=== PATIENT | male | born 1995 | race American Indian/Alaskan Native ===

== ENCOUNTER 2016-10-02 05:56 | Observation (INO) | payer MEDICAID, OTHER ==
[2016-10-02 05:57] VITALS: BMI 22.5
[2016-10-02 06:29] VITALS: RESP 16; TEMP 100.3
[2016-10-02 07:12] LABS: ADD MANUAL DIFF? NO
[2016-10-02 07:17] LABS: BASO # 0.01 K/mm3 (0.0-2.0); BASO % 0.1 % (0.0-3.0); EOS # 0.1 (0.0-0.7); EOS % 0.4 % (1.5-5.0); GRAN # 9.47 (1.4-6.5); GRAN % 82.2 % (50.0-68.0); HEMATOCRIT 42.4 % (42.0-52.0); LYMPH # 1.1 (1.2-3.4); LYMPH % 9.7 % (22.0-35.0); MEAN CORPUSCULAR HEMOGLOBIN 29.5 pg (25.0-35.0); MEAN CORPUSCULAR HGB CONC 35.1 g/dl (31.0-37.0); MEAN PLATELET VOLUME 9.9 fl (7.0-11.0); MONO # 0.9 (0.1-0.6); MONO % 7.6 % (1.0-6.0); PLATELET COUNT 132 10^3/uL (120.0-450.0); RED CELL DISTRIBUTION WIDTH 13.1 % (11.5-14.5); WHITE BLOOD COUNT 11.5 10^3/ul (4.5-11.0)
[2016-10-02 07:27] LABS: ALB/GLOB RATIO 1.4 (1.1-1.8); ALKALINE PHOSPHATASE 60 U/L (38-133); ALT/SGPT 32 U/L (7-56); AST/SGOT 22 U/L (15-59); BILIRUBIN,TOTAL 0.6 mg/dL (0.2-1.3); BLOOD UREA NITROGEN 11 mg/dL (7-21); CALCIUM 9.3 mg/dL (8.4-10.5); CARBON DIOXIDE 27 mmol/L (21-33); CHLORIDE 102 mmol/L (98-107); GFR AFRICAN-AMERICAN > 60; GLUCOSE,RANDOM 95 mg/dL (70-110); LIPASE 20 U/L (23-300); MAGNESIUM 1.8 mg/dL (1.7-2.2); POTASSIUM 3.8 mmol/L (3.6-5.0); SODIUM 138 mmol/L (132-148); TOTAL PROTEIN 7.2 g/dL (5.8-8.3)
--- NOTE | 2016-10-02 07:27 | ED PDOC ---
Arrival/HPI - General Historian: Patient - History of Present Illness Time/Duration: Prior to Arrival Symptom Onset: Sudden Symptom Course: Intermittent Quality: Tightness Severity Level: 5 Context: Home <Aspen Banks - Last Filed: 10/02/16 10:18> <Vishnu Cho - Last Filed: 10/02/16 10:24> - General Chief Complaint: Abdominal Pain Time Seen by Provider: 10/02/16 06:00 - History of Present Illness Narrative History of Present Illness (Text): 10/02/16 07:26 21 yo male with no significant PMH presents with epigastric abdominal pain. The pain is described at intermittent tightness, 5/10 that does not radiate. Patient states the pain started yesterday. He denies nausea, vomiting. He denies any previous episodes. He also reports general weakness that started yesterday. This morning patient states he woke up feeling hot and cold. He denies chest pain, sob, urinary symptoms. (Aspen Banks) Past Medical History - Provider Review Nursing Documentation Reviewed: Yes - Past History Past History: No Previous - Infectious Disease Hx of Infectious Diseases: None - Tetanus Immunization Tetanus Immunization: Up to Date - Past Medical History Past Medical History: No Previous - Psychiatric Hx Depression: No Hx Emotional Abuse: No Hx Physical Abuse: No Hx Substance Use: No - Past Surgical History Past Surgical History: No Previous - Anesthesia Hx Anesthesia: No - Suicidal Assessment Feels Threatened In Home Enviroment: No <Aspen Banks - Last Filed: 10/02/16 10:18> Family/Social History - Physician Review Nursing Documentation Reviewed: Yes Family/Social History: No Known Family HX Smoking Status: Light Smoker < 10 Cigarettes Daily Hx Alcohol Use: No Hx Substance Use: No Hx Substance Use Treatment: No <Aspen Banks - Last Filed: 10/02/16 10:18> Allergies/Home Meds <Aspen Banks - Last Filed: 10/02/16 10:18> <Vishnu Cho - Last Filed: 10/02/16 10:24> Allergies/Adverse Reactions: Allergies No Known Allergies Allergy (Verified 08/30/14 16:51) Home Medications: Home Meds Medication Instructions Recorded Confirmed No Known Home Med 10/02/16 10/02/16 Review of Systems - Review of Systems Constitutional: Fatigue, Fevers Eyes: Normal ENT: Normal Respiratory: Normal. absent: SOB, Cough Cardiovascular: Normal. absent: Chest Pain, Palpitations, Syncope Gastrointestinal: Abdominal Pain, Constipation. absent: Diarrhea, Nausea, Vomiting Genitourinary Male: Normal. absent: Dysuria, Frequency, Hematuria Musculoskeletal: Normal. absent: Arthralgias, Myalgias Skin: Normal. absent: Rash, Laceration, Ulcer Neurological: Normal. absent: Headache, Dizziness Hemo/Lymphatic: Normal. absent: Easy Bleeding, Easy Bruising <Aspen Banks - Last Filed: 10/02/16 10:18> Physical Exam - Systems Exam Head: Present: Atraumatic, Normocephalic Pupils: Present: PERRL. No: Non-Reactive Extroacular Muscles: Present: EOMI Conjunctiva: Present: Normal Mouth: Present: Moist Mucous Membranes. No: Dry, Normal Tounge Nose (External): Present: Atraumatic. No: Abrasion Neck: Present: Normal Range of Motion Respiratory/Chest: Present: Clear to Auscultation, Good Air Exchange. No: Respiratory Distress, Accessory Muscle Use, Wheezes, Rales, Rhonchi, Tachypneic Cardiovascular: Present: Regular Rate and Rhythm, Normal S1, S2. No: Murmurs, Tachycardic Abdomen: Present: Tenderness (epigastric ), Normal Bowel Sounds. No: Distention , Peritoneal Signs, Guarding, McBurney's Point Tender, Rovsing's Sign Present Upper Extremity: Present: Normal Inspection, NORMAL PULSES. No: Cyanosis, Edema Lower Extremity: Present: Normal Inspection. No: Edema, CALF TENDERNESS Neurological: Present: GCS=15, CN II-XII Intact, Speech Normal Skin: Present: Warm, Dry, Normal Color. No: Rashes Psychiatric: Present: Alert, Oriented x 3 <Aspen Banks - Last Filed: 10/02/16 10:18> Medical Decision Making <Aspen Banks - Last Filed: 10/02/16 10:18> <Vishnu Cho - Last Filed: 10/02/16 10:24> ED Course and Treatment: 10/02/16 07:39 Impression: 21 yo male with no PMH presents with epigastric abdominal pain. Differential Diagnosis included but are not limited to: gastritis, appendicitis Plan: - cbc, bmp - lipase, amylase - pepcid - toradol - CT abd/pelvic with IV and PO - NPO -- Reassess and disposition Progress Notes: 10/02/16 09:22 - patient is resting comfortably, pain has improved. All labs reviewed 10/02/16 10:11 - CT abd/pel with PO and IV contrast was unremarkable. Abdomen is soft, patient is tolerating PO intake. (Aspen Banks) Patient Seen With Resident: In agreement with resident note which contains more details about the patient. Patient was seen and evaluated with resident. Came up with plan and treatment together. 21-year-old male with abdominal discomfort, low-grade fever Labs show leukocytosis. No other acute abnormalities. CT unremarkable. On reevaluation, patient reports that she feels much better and would like to be discharged home. Patient's repeat abdominal exam is soft, nontender, non distended with positive bowel sounds in all 4 quadrants and no peritoneal signs. Patient is tolerating PO without any difficulty. Pt states he understands to return to the ER right away for new or worsening symptoms or for inability to f/u with PMD or specialist as instructed. Patient states that he fully agrees with and understands discharge instructions. States that he agrees with the plan and disposition. Verbalized and repeated discharge instructions and plan. I have given the patient opportunity to ask any additional questions. (Vishnu Cho) - Lab Interpretations Lab Results: 10/02/16 06:59 10/02/16 06:59 Lab Results 10/02/16 06:59: WBC 11.5 H, RBC 5.05, Hgb 14.9, Hct 42.4, MCV 84.0, MCH 29.5, MCHC 35.1, RDW 13.1, Plt Count 132, MPV 9.9, Gran % 82.2 H, Lymph % (Auto) 9.7 L , [place] % (Auto) 7.6 H, Eos % (Auto) 0.4 L, Baso % (Auto) 0.1, Gran # 9.47 H, Lymph # 1.1 L, [place] # 0.9 H, Eos # 0.1, Baso # 0.01 10/02/16 06:59: Sodium 138, Potassium 3.8, Chloride 102, Carbon Dioxide 27, Anion Gap 13, BUN 11, Creatinine 0.8, Est GFR ( Amer) > 60, Est GFR (Non- Af Amer) > 60, Random Glucose 95, Calcium 9.3, Magnesium 1.8, Total Bilirubin 0.6, AST 22, ALT 32, Alkaline Phosphatase 60, Total Protein 7.2, Albumin 4.2, Globulin 3.0, Albumin/Globulin Ratio 1.4, Lipase 20 L - RAD Interpretation Radiology Orders: 10/02/16 07:45 ABD PELVIS PO & IV CONTRAST [CT] Stat - Medication Orders Current Medication Orders: Discontinued Medications Famotidine (Pepcid 20mg/50ml Premix) 20 mg in 50 mls @ 100 mls/hr IVPB STAT STA Stop: 10/02/16 08:16 Last Admin: 10/02/16 08:23 Dose: 100 mls/hr Iohexol (Omnipaque 240 (50 Ml)) Confirm Administered Dose 50 ml .ROUTE .STK-MED ONE Stop: 10/02/16 07:49 Iohexol (Omnipaque 350 100 Ml) Confirm Administered Dose 350 mg .ROUTE .STK-MED ONE Stop: 10/02/16 08:32 Ketorolac Tromethamine (Toradol) 15 mg IVP STAT STA Stop: 10/02/16 07:48 Last Admin: 10/02/16 08:24 Dose: 15 mg ED OBSERVATION <Aspen Banks - Last Filed: 10/02/16 10:18> Discharge: Yes Date of observation admission: 10/02/16 Time of observation admission: 06:06 <Vishnu Cho - Last Filed: 10/02/16 10:24> - Observation admission statement Patient is being placed in observation because:: abd pain (Vishnu Cho) - Goals of Observation Goals of observation are:: ct, labs, workup (Vishnu Cho) Disposition/Present on Arrival - Present on Arrival Any Indicators Present on Arrival: No History of DVT/PE: No History of Uncontrolled Diabetes: No Urinary Catheter: No History of Decub. Ulcer: No History Surgical Site Infection Following: None - Disposition Have Diagnosis and Disposition been Completed?: Yes Disposition Time: 06:06 Patient Plan: Discharge <Aspen Banks - Last Filed: 10/02/16 10:18> <Vishnu Cho - Last Filed: 10/02/16 10:24> - Disposition Diagnosis: Abdominal pain Disposition: HOME/ ROUTINE Patient Problems: Current Active Problems Problem Status Onset Abdominal pain Acute Condition: IMPROVED
[2016-10-02] MEDS ORDERED: Famotidine 20mg/50ml 20 MG/50 ML BAG IVPB STA (07:47)
[2016-10-02] MEDS ORDERED: Iohexol 240 (50 ml) ONE (07:48)
[2016-10-02] MEDS ORDERED: Iohexol 350 MG/100 ML VIAL ONE (08:31)
[2016-10-02 08:48] LABS: PH,URINE 8.5 (4.7-8.0); URINE BILIRUBIN NEGATIVE (NEGATIVE); URINE BLOOD NEGATIVE (NEGATIVE); URINE GLUCOSE (UA) NEGATIVE (NEGATIVE); URINE KETONE NEGATIVE (NEGATIVE); URINE LEUKOCYTE ESTERASE NEGATIVE Leu/uL (NEGATIVE); URINE PROTEIN NEGATIVE mg/dL (<30 mg/dL); URINE UROBILINOGEN 0.2 E.U./dL (<1 E.U./dL)
[2016-10-02 08:50] LABS: URINE APPEARANCE CLEAR (CLEAR); URINE COLOR YELLOW (YELLOW)
[2016-10-02 09:01] VITALS: BP 111/53; PULSE 70; O2SAT 100
--- NOTE | 2016-10-02 10:09 | CT ---
PROCEDURE: CT Abdomen and Pelvis with contrast HISTORY: abd pain COMPARISON: None. TECHNIQUE: Contrast dose: 100 cc of Omni 350 Radiation dose: Total exam DLP = 234 mGy-cm. This CT exam was performed using one or more of the following dose reduction techniques: Automated exposure control, adjustment of the mA and/or kV according to patient size, and/or use of iterative reconstruction technique. FINDINGS: LOWER THORAX: Unremarkable. LIVER: Unremarkable. No gross lesion or ductal dilatation. GALLBLADDER AND BILE DUCTS: Unremarkable. PANCREAS: Unremarkable. No gross lesion or ductal dilatation. SPLEEN: Unremarkable. ADRENALS: Unremarkable. No mass. KIDNEYS AND URETERS: Unremarkable. No hydronephrosis. No solid mass. VASCULATURE: Unremarkable. No aortic aneurysm. BOWEL: Unremarkable. No obstruction. No gross mural thickening. APPENDIX: No evidence of appendicitis. PERITONEUM: Unremarkable. No free fluid. No free air. LYMPH NODES: Unremarkable. No enlarged lymph nodes. BLADDER: Unremarkable. REPRODUCTIVE: Unremarkable. BONES: No acute fracture. OTHER FINDINGS: None. IMPRESSION: Unremarkable contrast enhanced CT of the abdomen and pelvis.
== END 2016-10-02 10:25 | disposition home or self-care (01) ==
LOC: ED 05:56 → EROBSV 07:57
PROVIDERS: ADMIT Emergency Medicine; ATTEND Emergency Medicine
DX: R10.13 Epigastric pain (principal); F17.210 Nicotine dependence, cigarettes, uncomplicated
CPT/HCPCS: 74177; 80053; 81003; 83690; 83735; 85025; 96365; 96375; 99284; G0378; J1885; Q9966; Q9967

== ENCOUNTER 2017-03-24 19:03 | Emergency (ER) | payer SELFPAY ==
[2017-03-24 19:04] VITALS: BMI 22.5
[2017-03-24 19:12] VITALS: BP 106/66; PULSE 72; RESP 20; TEMP 97.9; O2SAT 100
[2017-03-24] MEDS ORDERED: Oxycodone/Acetaminophen 5/325 mg Tab PO STA (19:17)
--- NOTE | 2017-03-24 19:21 | ED PDOC ---
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 Aching pain, non-radiating, aggravated by movement , no urinary or bowel incontinence or retention, no night sweat, no dizziness, no change in vision, no palpitation, no other medical or psychological complaints. (Hardeep Moulton) Past Medical History - Provider Review Nursing Documentation Reviewed: Yes - Past History Past History: No Previous - Infectious Disease Hx of Infectious Diseases: None - Tetanus Immunization Tetanus Immunization: Up to Date - Past Medical History Past Medical History: No Previous - Psychiatric Hx Depression: No Hx Emotional Abuse: No Hx Physical Abuse: No Hx Substance Use: Yes - Past Surgical History Past Surgical History: No Previous - Anesthesia Hx Anesthesia: No Hx Anesthesia Reactions: No Hx Malignant Hyperthermia: No - Suicidal Assessment Feels Threatened In Home Enviroment: No <Hardeep Moulton - Last Filed: 03/24/17 19:46> Family/Social History - Physician Review Nursing Documentation Reviewed: Yes Family/Social History: Unknown Family HX Smoking Status: Light Smoker < 10 Cigarettes Daily Hx Alcohol Use: No Hx Substance Use: Yes Substance used: marijuana Hx Substance Use Treatment: No <Hardeep Moulton - Last Filed: 03/24/17 19:46> Allergies/Home Meds <Hardeep Moulton - Last Filed: 03/24/17 19:46> <Tj Bowles - Last Filed: 03/24/17 22:26> Allergies/Adverse Reactions: Allergies No Known Allergies Allergy (Verified 03/24/17 19:12) Review of Systems - Review of Systems Constitutional: absent: Fatigue, Fevers Eyes: absent: Vision Changes ENT: absent: Hearing Changes Respiratory: absent: SOB, Cough Cardiovascular: absent: Chest Pain Gastrointestinal: absent: Abdominal Pain, Nausea, Vomiting Musculoskeletal: Back Pain, Myalgias. absent: Arthralgias, Neck Pain, Joint Swelling Skin: absent: Rash, Pruritis, Skin Lesions Neurological: absent: Headache, Dizziness <Hardeep Moulton - Last Filed: 03/24/17 19:46> Physical Exam Vital Signs Reviewed: Yes Temperature: Afebrile Blood Pressure: Normal Pulse: Regular Respiratory Rate: Normal Appearance: Positive for: Well-Appearing, Non-Toxic Pain Distress: Moderate Mental Status: Positive for: Alert and Oriented X 3 - Systems Exam Head: Present: Atraumatic, Normocephalic Pupils: Present: PERRL Extroacular Muscles: Present: EOMI Conjunctiva: Present: Normal Mouth: Present: Moist Mucous Membranes Neck: Present: Normal Range of Motion Respiratory/Chest: Present: Clear to Auscultation, Good Air Exchange. No: Respiratory Distress, Accessory Muscle Use Cardiovascular: Present: Regular Rate and Rhythm, Normal S1, S2. No: Murmurs Abdomen: Present: Normal Bowel Sounds. No: Tenderness, Distention, Peritoneal Signs Back: Present: Normal Inspection, Other (LS spine: +ttp on the lt. paraspinal muscle region with mild spasm, no midline tenderness or step off, FROM without limitation, sensation intact, motor 5/5, no saddling gait, SLR test negative. ) . No: CVA Tenderness Upper Extremity: Present: Normal Inspection. No: Cyanosis, Edema Lower Extremity: Present: Normal Inspection. No: Edema Neurological: Present: GCS=15, Speech Normal, Motor Func Grossly Intact, Gait Normal, Memory Normal Skin: Present: Warm, Dry, Normal Color. No: Rashes Psychiatric: Present: Alert, Oriented x 3, Normal Insight, Normal Concentration <Hardeep Moulton - Last Filed: 03/24/17 19:46> Vital Signs Temp Pulse Resp BP Pulse Ox 03/24/17 19:07 97.9 F 72 20 106/66 100 Medical Decision Making <Hardeep Moulton - Last Filed: 03/24/17 19:46> <Tj Bowles - Last Filed: 03/24/17 22:26> ED Course and Treatment: 03/24/17 19:20 -Pt. has no urinary symptoms, no signs of cauda equinae, no emergent indication of the radiology studies indicated at this time. -Toradol and percocet. -observe and reassess 03/24/17 19:47 -Pt. feels much better. -Discharge home with naproxen, flexeril, heat compression, lumbar belt, bed rest , follow up with your own pmd and physical therapist within 2 days, return to the ER for any new or worsening signs or symptoms. (Hardeep Moulton) - Medication Orders Current Medication Orders: Discontinued Medications Ketorolac Tromethamine (Toradol) 60 mg IM STAT STA Stop: 03/24/17 19:18 Last Admin: 03/24/17 19:28 Dose: 60 mg MAR Pain Assessment Document 03/24/17 19:28 [place] (Rec: 03/24/17 19:28 [id number]) Pain Reassessment Is this a pain reassessment? No Sleep Is patient sleeping during reassessment? No Presence of Pain Presence of Pain Yes IM Administration Charges Document 03/24/17 19:28 SC (Rec: 03/24/17 19:28 [id number]) Injection Site MAR Injection Site Left Gluteus Subhash Charges for Administration # of IM Administrations 1 Oxycodone/Acetaminophen (Percocet 5/325 Mg Tab) 1 tab PO STAT STA Stop: 03/24/17 19:18 Last Admin: 03/24/17 19:28 Dose: 1 tab MAR Pain Assessment Document 03/24/17 19:28 SC (Rec: 03/24/17 19:28 [id number]) Pain Reassessment Is this a pain reassessment? No Sleep Is patient sleeping during reassessment? No Presence of Pain Presence of Pain Yes Pain Scale Used Pain Scale Used Numeric Location Left, Right or Bilateral Left Upper or Lower Lower Pain Location Body Site Back Description Description Constant Intensity of Pain at present 8 - PA / [employer] / Resident Statement / has reviewed & agrees with the documentation as recorded. <Hardeep Moulton - Last Filed: 03/24/17 19:46> - PA / [employer]CH[employer]IC / Resident Statement / has reviewed & agrees with the documentation as recorded. <Tj Bowles - Last Filed: 03/24/17 22:26> Disposition/Present on Arrival - Present on Arrival Any Indicators Present on Arrival: No History of DVT/PE: No History of Uncontrolled Diabetes: No Urinary Catheter: No History of Decub. Ulcer: No History Surgical Site Infection Following: None - Disposition Have Diagnosis and Disposition been Completed?: Yes Disposition Time: 19:22 Patient Plan: Discharge <Hardeep Moulton - Last Filed: 03/24/17 19:46> <Tj Bowles - Last Filed: 03/24/17 22:26> - Disposition Diagnosis: Low back pain, Back muscle spasm Disposition: HOME/ ROUTINE Condition: GOOD Additional Instructions: -Discharge home with naproxen, flexeril, heat compression, lumbar belt, bed rest , follow up with your own pmd and physical therapist within 2 days, return to the ER for any new or worsening signs or symptoms. Prescriptions: Back Brace [Deluxe Back Stabilizer] 1 each MC DAILY #1 each Cyclobenzaprine [Cyclobenzaprine HCl] 10 mg PO TID PRN #21 tab PRN Reason: Other Naproxen 500 mg PO BID PRN #20 tab PRN Reason: Other Referrals: [facility] at [facility] [place] [Outside] - Follow up with primary Nithin Sevilla DO [Staff Provider] - Follow up with primary Forms: WORK NOTE
== END 2017-03-24 20:14 | disposition home or self-care (01) ==
LOC: ED 19:03
DX: M54.5 Low back pain (principal); M62.830 Muscle spasm of back
CPT/HCPCS: 96372; 99282; J1885

== ENCOUNTER 2017-03-26 18:11 | Emergency (ER) | payer OTHER ==
[2017-03-26 18:12] VITALS: BMI 22.5
[2017-03-26 18:18] VITALS: TEMP 98.1; O2SAT 99
--- NOTE | 2017-03-26 18:25 | ED PDOC ---
Arrival/HPI - General Chief Complaint: Back Pain Time Seen by Provider: 03/26/17 18:21 Historian: Patient - History of Present Illness Narrative History of Present Illness (Text): 03/26/17 18:22 21 y/o male w/o significant PMHx come in for re-evaluation of Right sided lower back pain x 3-4 days. Pt admits, does heavy lifting at work. Patient describes pain as localized over right lower back, aching pain, non-radiating, worse with movement. Otherwise, pt denies known trauma or injury, fever, chills, abd. pain, N/V, denies urinary or bowel incontinence or retention, saddle anesthesia , UTI sx, denies weakness, sensory or vascular deficits to B/L lEs. At admits, was seen here in ED yesterday, when received Rx: Flexeril, naproxen. Ambulate to Ed for evaluation, not in any apparent distress. Past Medical History - Provider Review Nursing Documentation Reviewed: Yes - Travel History Have you recently traveled outside [place] w/in the past 3 mons?: No - Past History Past History: No Previous - Infectious Disease Hx of Infectious Diseases: None - Tetanus Immunization Tetanus Immunization: Up to Date - Past Medical History Past Medical History: No Previous - Psychiatric Hx Depression: No Hx Emotional Abuse: No Hx Physical Abuse: No Hx Substance Use: Yes - Past Surgical History Past Surgical History: No Previous - Anesthesia Hx Anesthesia: No Hx Anesthesia Reactions: No Hx Malignant Hyperthermia: No - Suicidal Assessment Feels Threatened In Home Enviroment: No Family/Social History - Physician Review Nursing Documentation Reviewed: Yes Family/Social History: No Known Family HX Smoking Status: Light Smoker < 10 Cigarettes Daily Hx Alcohol Use: No Hx Substance Use: Yes Substance used: marijuana Hx Substance Use Treatment: No Allergies/Home Meds Allergies/Adverse Reactions: Allergies No Known Allergies Allergy (Verified 03/26/17 18:15) Review of Systems - Review of Systems Constitutional: Normal Eyes: Normal ENT: Normal Respiratory: Normal Cardiovascular: Normal Gastrointestinal: Normal Genitourinary Male: Normal Musculoskeletal: Back Pain Skin: Normal Neurological: Normal Endocrine: Normal Hemo/Lymphatic: Normal Psychiatric: Normal Physical Exam Vital Signs Temp Pulse Resp BP Pulse Ox 03/26/17 18:17 98.1 F 70 16 97/62 L 99 Temperature: Afebrile Blood Pressure: Normal Pulse: Regular Respiratory Rate: Normal Appearance: Positive for: Well-Appearing, Non-Toxic, Comfortable Pain Distress: Moderate Mental Status: Positive for: Alert and Oriented X 3 - Systems Exam Head: Present: Normocephalic Conjunctiva: Present: Normal Mouth: Present: Moist Mucous Membranes Neck: Present: Normal Range of Motion, Trachea Midline. No: JVD Respiratory/Chest: Present: Clear to Auscultation, Good Air Exchange. No: Respiratory Distress, Accessory Muscle Use Cardiovascular: Present: Regular Rate and Rhythm, Normal S1, S2. No: Murmurs Abdomen: Present: Normal Bowel Sounds. No: Tenderness, Distention, Peritoneal Signs, Rebound, Guarding Back: Present: Other (Left sided flank and lumbar tenderness. No edema, no skin cahnges, no midline tenderness.). No: CVA Tenderness, Midline Tenderness Upper Extremity: Present: Normal ROM. No: Deformity Lower Extremity: Present: NORMAL PULSES, Normal ROM, Neurovascularly Intact. No : Edema, CALF TENDERNESS, Swelling, Deformity Neurological: Present: GCS=15, Speech Normal, Normal Sensory Function, Norm Deep Tendon Reflexes Skin: Present: Warm, Dry, Normal Color. No: Rashes Psychiatric: Present: Alert, Oriented x 3 Medical Decision Making ED Course and Treatment: 03/26/17 On re-eval, pt is afebrile, hemodynamicaly stable. Non-toxic. Ambulatory in ED with stable gait. neck: Supple. Abd: benign, (-) guarding, (-) rebound. back: (-) CVA tenderness. neurologically intact. UA results- normal study. L-spine- no acute fx or sublux Pt has clinical findings c/w Right lower back pain r/o strain. Pt advised on course of ds. ref. to F/u with PMD, Pain Management in 2-3 days for re-eval. return to ED if any new changes. - Lab Interpretations Lab Results: Lab Results 03/26/17 18:40: Urine Color Yellow, Urine Appearance Clear, Urine pH 6.5, Ur Specific Pelzer 1.010, Urine Protein Negative, Urine Glucose (UA) Negative, Urine Ketones Negative, Urine Blood Negative, Urine Nitrate Negative, Urine Bilirubin Negative, Urine Urobilinogen 0.2, Ur Leukocyte Esterase Negative - RAD Interpretation Radiology Orders: 03/26/17 18:25 LS SPINE AP/LAT [RAD] Stat (-) ACUTE FX OR SUBLUX - Medication Orders Current Medication Orders: Gabapentin (Neurontin) 300 mg PO STAT JORDAN PRN Reason: Protocol Discontinued Medications Ibuprofen (Motrin Tab) 600 mg PO STAT STA Stop: 03/26/17 18:41 Tramadol HCl (Ultram) 50 mg PO STAT STA Stop: 03/26/17 18:41 Disposition/Present on Arrival - Present on Arrival Any Indicators Present on Arrival: No History of DVT/PE: No History of Uncontrolled Diabetes: No Urinary Catheter: No History of Decub. Ulcer: No History Surgical Site Infection Following: None - Disposition Have Diagnosis and Disposition been Completed?: Yes Diagnosis: Back pain Disposition: HOME/ ROUTINE Disposition Time: 18:57 Patient Plan: Discharge Patient Problems: Current Active Problems Problem Status Onset Back pain Acute Condition: STABLE Discharge Instructions (ExitCare): Back Pain (ED), Back Exercises (ED) Additional Instructions: LIGHT DUTY TO LOWER BACK, AVOID HEAVY LIFTING, BENDING FORWARD, ETC. TAKE PAIN MEDICATION PRESCRIBED NEED FOLLOW UP WITH PMD AND PAIN MANAGEMENT IN 2-3 DAYS FOR RE-EVALUATION. RETURN TO ED IF ANY WORSENING OR NEW CHANGES. Prescriptions: Methocarbamol [Robaxin] 500 mg PO TID #14 tab Prednisone [Deltasone] 40 mg PO DAILY #6 tablet traMADol [Ultram] 50 mg PO TID #7 tab Referrals: [facility] at [facility] [place] [Outside] - Follow up with primary [facility] [Provider Group] - Follow up with primary [facility] [Provider Group] - Follow up with primary Forms: [employer] ([place]), WORK NOTE
[2017-03-26 18:48] LABS: PH,URINE 6.5 (4.7-8.0); URINE APPEARANCE CLEAR (CLEAR); URINE BILIRUBIN NEGATIVE (NEGATIVE); URINE BLOOD NEGATIVE (NEGATIVE); URINE COLOR YELLOW (YELLOW); URINE GLUCOSE (UA) NEGATIVE (NEGATIVE); URINE KETONE NEGATIVE (NEGATIVE); URINE LEUKOCYTE ESTERASE NEGATIVE Leu/uL (NEGATIVE); URINE PROTEIN NEGATIVE mg/dL (<30 mg/dL); URINE UROBILINOGEN 0.2 E.U./dL (<1 E.U./dL)
[2017-03-26 20:17] VITALS: BP 103/68; PULSE 85; RESP 18
--- NOTE | 2017-03-27 09:58 | RAD ---
PROCEDURE: Radiographs of the Lumbar Spine. HISTORY: pain COMPARISON: No prior. FINDINGS: BONES: Normal alignment. No listhesis. No fracture. DISC SPACES: Unremarkable. OTHER FINDINGS: Extensive mottled material within the stomach. Indeterminate vague opacities projecting of the left kidney- either GI contents or renal origin. IMPRESSION: No lumbar spine intrinsic pathology. Indeterminate small opacities left upper abdominal quadrant- GI contents versus left renal calculi are considerations.
== END 2017-03-26 20:17 | disposition home or self-care (01) ==
LOC: ED 18:11
DX: M54.5 Low back pain (principal)

== ENCOUNTER 2017-07-28 21:39 | Emergency (ER) | payer SELFPAY ==
[2017-07-28 21:39] VITALS: BMI 22.5
[2017-07-28 21:56] VITALS: BP 125/77; PULSE 75; RESP 18; TEMP 97.6; O2SAT 100
--- NOTE | 2017-07-28 21:56 | ED PDOC ---
Arrival/HPI - General Time Seen by Provider: 07/28/17 21:42 Historian: Patient - History of Present Illness Narrative History of Present Illness (Text): 07/28/17 21:50 21 year old male, with no significant PMH, who presents to the emergency department complaining of lower back pain since 3 days ago. 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 He has been experiencing soreness in the lower back ever since and states it is non-radiating. Patient notes he has not taken any medication for relief. Patient denies fall, trauma, dysuria, hematuria, urinary incontinence or retention, or other complaints. Time/Duration: < week Symptom Onset: Sudden Symptom Course: Unchanged Quality: Other (soreness) Context: Work Past Medical History - Provider Review Nursing Documentation Reviewed: Yes - Past History Past History: No Previous - Infectious Disease Hx of Infectious Diseases: None - Tetanus Immunization Tetanus Immunization: Up to Date - Past Medical History Past Medical History: No Previous - Psychiatric Hx Depression: No Hx Emotional Abuse: No Hx Physical Abuse: No Hx Substance Use: Yes - Past Surgical History Past Surgical History: No Previous - Anesthesia Hx Anesthesia: No Hx Anesthesia Reactions: No Hx Malignant Hyperthermia: No - Suicidal Assessment Feels Threatened In Home Enviroment: No Family/Social History - Physician Review Nursing Documentation Reviewed: Yes Family/Social History: Unknown Family HX Smoking Status: Light Smoker < 10 Cigarettes Daily Hx Alcohol Use: No Hx Substance Use: Yes Substance used: marijuana Hx Substance Use Treatment: No Allergies/Home Meds Allergies/Adverse Reactions: Allergies No Known Allergies Allergy (Verified 07/28/17 21:53) Review of Systems - Physician Review All systems were reviewed & negative as marked: Yes - Review of Systems Constitutional: absent: Fevers Respiratory: absent: SOB Cardiovascular: absent: Chest Pain Gastrointestinal: absent: Abdominal Pain, Nausea, Vomiting Genitourinary Male: absent: Dysuria, Frequency Musculoskeletal: Back Pain (lower back pain ). absent: Arthralgias, Neck Pain, Joint Swelling, Myalgias Skin: absent: Rash, Pruritis Physical Exam Vital Signs Reviewed: Yes Vital Signs Temp Pulse Resp BP Pulse Ox 07/28/17 21:56 97.6 F 75 18 125/77 100 Temperature: Afebrile Blood Pressure: Normal Pulse: Regular Respiratory Rate: Normal Appearance: Positive for: Well-Appearing, Non-Toxic, Comfortable Pain Distress: Mild Mental Status: Positive for: Alert and Oriented X 3 - Systems Exam Head: Present: Atraumatic, Normocephalic Pupils: Present: PERRL Extroacular Muscles: Present: EOMI Conjunctiva: Present: Normal Neck: Present: Normal Range of Motion Back: Present: Normal Inspection, Paraspinal Tenderness (mild tenderness on right paraspinal near L3-L4), Other (FROM. Pain triggered by lateral movement of the lumbar spine but with no midline tendernes or step off. ). No: CVA Tenderness, Midline Tenderness, Pain with Leg Raise Upper Extremity: Present: Normal Inspection. No: Cyanosis, Edema Neurological: Present: GCS=15, Speech Normal, Motor Func Grossly Intact, Gait Normal, Memory Normal Skin: Present: Warm, Dry, Normal Color. No: Rashes Psychiatric: Present: Alert, Oriented x 3, Normal Insight, Normal Concentration Medical Decision Making ED Course and Treatment: 07/28/17 Impression: 21 year old male with mild tenderness on right paraspinal L3-L4 complaining of lower back pain since 3 days ago. 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 - Scribe Statement The provider has reviewed the documentation as recorded by the Aston [facility] Provider Scribe Attestation: All medical record entries made by the Aston were at my direction and personally dictated by me. I have reviewed the chart and agree that the record accurately reflects my personal performance of the history, physical exam, medical decision making, and the department course for this patient. I have also personally directed, reviewed, and agree with the discharge instructions and disposition. Disposition/Present on Arrival - Present on Arrival Any Indicators Present on Arrival: No History of DVT/PE: No History of Uncontrolled Diabetes: No Urinary Catheter: No History of Decub. Ulcer: No History Surgical Site Infection Following: None - Disposition Have Diagnosis and Disposition been Completed?: Yes Diagnosis: Low back pain Disposition: HOME/ ROUTINE Disposition Time: 22:02 Patient Plan: Discharge Condition: GOOD Prescriptions: Cyclobenzaprine [Cyclobenzaprine HCl] 10 mg PO TID PRN #21 tab PRN Reason: Other Naproxen 500 mg PO BID PRN #20 tablet PRN Reason: Other Referrals: [facility] [place] - Follow up with primary Forms: WORK NOTE
== END 2017-07-28 22:24 | disposition home or self-care (01) ==
LOC: ED 21:39
DX: M54.5 Low back pain (principal)

== ENCOUNTER 2017-10-06 20:15 | Emergency (ER) | payer SELFPAY ==
[2017-10-06 20:15] VITALS: BMI 22.5
[2017-10-06] MEDS ORDERED: Oxycodone/Acetaminophen 5/325 mg Tab PO STA (20:37)
--- NOTE | 2017-10-06 20:46 | ED PDOC ---
Arrival/HPI - General Chief Complaint: Back Pain Time Seen by Provider: 10/06/17 20:36 Historian: Patient - History of Present Illness Narrative History of Present Illness (Text): 22 year old male w/ pmxh of [facility] visits for similar complaints LS xray (-)/ ct a/p (-) in the past year presents complaining of lower back pain , somewhat more prominent in the right lower back , reproducible with bending and truncal rotation, denying any saddle anesthesia/sphincter deficits, difficulty w/ heel/ toe walking nor any falls nor marked traumatic mechanism, although he endorses during heavy lifting at his job at the [employer]. 10/06/17 20:40 Time/Duration: Other Symptom Onset: Gradual Symptom Course: Worsening Quality: Aching Past Medical History - Provider Review Nursing Documentation Reviewed: Yes - Past History Past History: No Previous - Infectious Disease Hx of Infectious Diseases: None - Tetanus Immunization Tetanus Immunization: Up to Date - Past Medical History Past Medical History: No Previous - Cardiac Hx Cardiac Disorders: No - Pulmonary Hx Respiratory Disorders: No - Integumentary Hx Dermatological Disorder: No - Psychiatric Hx Depression: No Hx Emotional Abuse: No Hx Physical Abuse: No Hx Substance Use: Yes - Past Surgical History Past Surgical History: No Previous - Anesthesia Hx Anesthesia: No Hx Anesthesia Reactions: No Hx Malignant Hyperthermia: No - Suicidal Assessment Feels Threatened In Home Enviroment: No Family/Social History - Physician Review Nursing Documentation Reviewed: Yes Family/Social History: No Known Family HX Smoking Status: Light Smoker < 10 Cigarettes Daily Hx Alcohol Use: No Hx Substance Use: Yes Substance used: marijuana Hx Substance Use Treatment: No Allergies/Home Meds Allergies/Adverse Reactions: Allergies No Known Allergies Allergy (Verified 07/28/17 21:53) Review of Systems - Physician Review All systems were reviewed & negative as marked: Yes - Review of Systems Constitutional: Normal Eyes: Normal ENT: Normal Respiratory: Normal Cardiovascular: Normal Gastrointestinal: Normal Genitourinary Male: Normal Musculoskeletal: Back Pain Skin: Normal Neurological: Normal Endocrine: Normal Hemo/Lymphatic: Normal Psychiatric: Normal Physical Exam Vital Signs Reviewed: Yes Vital Signs Temp Pulse Resp BP Pulse Ox 10/06/17 21:15 97.9 F 60 18 113/60 98 10/06/17 20:23 98 F 79 18 114/68 99 Temperature: Afebrile Blood Pressure: Normal Pulse: Regular Respiratory Rate: Normal Appearance: Positive for: Well-Appearing, Non-Toxic, Comfortable Pain Distress: None Mental Status: Positive for: Alert and Oriented X 3 - Systems Exam Head: Present: Atraumatic, Normocephalic Pupils: Present: PERRL Extroacular Muscles: Present: EOMI Conjunctiva: Present: Normal Mouth: Present: Moist Mucous Membranes Neck: Present: Normal Range of Motion Respiratory/Chest: Present: Clear to Auscultation, Good Air Exchange. No: Respiratory Distress, Accessory Muscle Use Cardiovascular: Present: Regular Rate and Rhythm, Normal S1, S2. No: Murmurs Abdomen: No: Tenderness, Distention, Peritoneal Signs Back: Present: Other (b/l slr (-) , + b/l paralumbar ttp . r>l , no midspinal ttp ) Upper Extremity: Present: Normal Inspection. No: Cyanosis, Edema Lower Extremity: Present: Normal Inspection. No: Edema Neurological: Present: GCS=15, CN II-XII Intact, Speech Normal Skin: Present: Warm, Dry, Normal Color. No: Rashes Psychiatric: Present: Alert, Oriented x 3, Normal Insight, Normal Concentration Medical Decision Making ED Course and Treatment: 22 year old male p/w musculoskeletal lumbago -trial of analgesics -Counseled on heavy lifting serial neurological exams discharge home on similar rx. . 10/06/17 20:47 10/06/17 21:36 serial neurological exams corroborative of the earlier noted. - Medication Orders Current Medication Orders: Discontinued Medications Cyclobenzaprine HCl (Flexeril) 10 mg PO STAT STA Stop: 10/06/17 20:37 Last Admin: 10/06/17 20:49 Dose: 10 mg Ketorolac Tromethamine (Toradol) 60 mg IM STAT STA Stop: 10/06/17 20:37 Last Admin: 10/06/17 20:48 Dose: 60 mg MAR Pain Assessment Document 10/06/17 20:48 LA (Rec: 10/06/17 20:49 LA [id number]) Pain Reassessment Is this a pain reassessment? No Sleep Is patient sleeping during reassessment? No Presence of Pain Presence of Pain Yes Pain Scale Used Pain Scale Used Numeric Location Left, Right or Bilateral Bilateral Upper or Lower Lower Pain Location Body Site Back Description Intensity of Pain at present 6 Pain Behavior Guarding IM Administration Charges Document 10/06/17 20:48 LA (Rec: 10/06/17 20:49 LA [id number]) Injection Site MAR Injection Site Right Gluteus Subhash Charges for Administration # of IM Administrations 1 Oxycodone/Acetaminophen (Percocet 5/325 Mg Tab) 1 tab PO STAT STA Stop: 10/06/17 20:38 Last Admin: 10/06/17 20:48 Dose: 1 tab MAR Pain Assessment Document 10/06/17 20:48 LA (Rec: 10/06/17 20:48 LA [id number]) Pain Reassessment Is this a pain reassessment? No Sleep Is patient sleeping during reassessment? No Presence of Pain Presence of Pain Yes Pain Scale Used Pain Scale Used Numeric Location Left, Right or Bilateral Bilateral Upper or Lower Lower Pain Location Body Site Back Description Intensity of Pain at present 6 Disposition/Present on Arrival - Present on Arrival Any Indicators Present on Arrival: No History of DVT/PE: No History of Uncontrolled Diabetes: No Urinary Catheter: No History of Decub. Ulcer: No History Surgical Site Infection Following: None - Disposition Have Diagnosis and Disposition been Completed?: Yes Diagnosis: Lumbago Disposition: HOME/ ROUTINE Disposition Time: 21:37 Patient Plan: Discharge Condition: IMPROVED Discharge Instructions (ExitCare): Low Back Pain in Adults Print Language: ITALIAN Additional Instructions: Buy a wide, fat weightlifting leather belt to support your back . Lift by bending your knees not by bending from the back which will also avoid throwing your back muscles into spasm. . Take the pain meds and muscle relaxants as needed, but with food. 25-35 minutes after taking the medicine , place a hot moist towel compress to facilitate muscle relaxation, and then with deep tiisuue massage the pain will be relieved. Prescriptions: Cyclobenzaprine [Cyclobenzaprine HCl] 10 mg PO Q8 PRN #20 tab PRN Reason: Pain, Moderate (4-7) Ibuprofen [Motrin] 600 mg PO Q6 PRN #40 tab PRN Reason: Pain, Moderate (4-7) Referrals: [facility] at [facility] [place] - Follow up with primary Forms: [employer] (Hungarian), WORK NOTE
[2017-10-06 21:16] VITALS: TEMP 97.9
[2017-10-06 21:56] VITALS: BP 117/66; PULSE 65; RESP 19; O2SAT 100
== END 2017-10-06 21:50 | disposition home or self-care (01) ==
LOC: ED 20:15
DX: M54.5 Low back pain (principal)
CPT/HCPCS: 96372; 99283; J1885

== ENCOUNTER 2017-10-27 19:27 | Emergency (ER) | payer SELFPAY ==
[2017-10-27 19:28] VITALS: BMI 22.5
[2017-10-27] MEDS ORDERED: Oxycodone/Acetaminophen 5/325 mg Tab PO STA (20:14)
[2017-10-27 20:19] VITALS: TEMP 98.6
--- NOTE | 2017-10-27 20:20 | ED PDOC ---
Arrival/HPI - General Chief Complaint: Dental Pain Time Seen by Provider: 10/27/17 20:14 Historian: Patient - History of Present Illness Narrative History of Present Illness (Text): 10/27/17 20:16 22 y/o male, no significant pmh, nkda, c/o lt. lower dental pain x 1 month. Pt. stated that he has left lower dental caries, been having pain, no chin or facial swelling, no difficulty swallowing, no rash, no night sweat, no change in vision, no other medical or psychological complaints. Past Medical History - Provider Review Nursing Documentation Reviewed: Yes - Past History Past History: No Previous - Infectious Disease Hx of Infectious Diseases: None - Tetanus Immunization Tetanus Immunization: Up to Date - Past Medical History Past Medical History: No Previous - Cardiac Hx Cardiac Disorders: No - Pulmonary Hx Respiratory Disorders: No - Integumentary Hx Dermatological Disorder: No - Psychiatric Hx Depression: No Hx Emotional Abuse: No Hx Physical Abuse: No Hx Substance Use: Yes - Past Surgical History Past Surgical History: No Previous - Anesthesia Hx Anesthesia: No Hx Anesthesia Reactions: No Hx Malignant Hyperthermia: No - Suicidal Assessment Feels Threatened In Home Enviroment: No Family/Social History - Physician Review Nursing Documentation Reviewed: Yes Family/Social History: Unknown Family HX Smoking Status: Light Smoker < 10 Cigarettes Daily Hx Alcohol Use: No Hx Substance Use: Yes Substance used: marijuana Hx Substance Use Treatment: No Allergies/Home Meds Allergies/Adverse Reactions: Allergies No Known Allergies Allergy (Verified 10/27/17 20:03) Review of Systems - Review of Systems Constitutional: absent: Fatigue, Fevers Eyes: absent: Vision Changes ENT: Other (+dental pain). absent: Hearing Changes Respiratory: absent: SOB, Cough Cardiovascular: absent: Chest Pain Gastrointestinal: absent: Abdominal Pain, Nausea, Vomiting Skin: absent: Rash, Pruritis Neurological: absent: Headache, Dizziness Psychiatric: absent: Anxiety, Depression, Suicidal Ideation Physical Exam Vital Signs Reviewed: Yes Vital Signs Temp Pulse Resp BP Pulse Ox 10/27/17 19:59 98.6 F 82 19 99/76 L 98 Temperature: Afebrile Blood Pressure: Normal Pulse: Regular Respiratory Rate: Normal Appearance: Positive for: Well-Appearing, Non-Toxic, Comfortable Pain Distress: Moderate Mental Status: Positive for: Alert and Oriented X 3 - Systems Exam Head: Present: Atraumatic, Normocephalic Pupils: Present: PERRL Extroacular Muscles: Present: EOMI Conjunctiva: Present: Normal Mouth: Present: Moist Mucous Membranes, Other (Lt. lower cracked and dental caries noted with no gingivitis or gingival abscess, no facial or chin swelling. ) Nose (External): Present: Atraumatic. No: Abrasion, Contusion, Laceration Nose (Internal): Present: Normal Inspection, No Active Bleeding. No: Rhinorrhea Neck: Present: Normal Range of Motion Respiratory/Chest: Present: Clear to Auscultation, Good Air Exchange. No: Respiratory Distress, Accessory Muscle Use Cardiovascular: Present: Regular Rate and Rhythm, Normal S1, S2. No: Murmurs Abdomen: No: Tenderness, Distention, Peritoneal Signs Back: Present: Normal Inspection Upper Extremity: Present: Normal Inspection. No: Cyanosis, Edema Lower Extremity: Present: Normal Inspection. No: Edema Neurological: Present: GCS=15, CN II-XII Intact, Speech Normal, Motor Func Grossly Intact, Gait Normal, Memory Normal Skin: Present: Warm, Dry, Normal Color. No: Rashes Psychiatric: Present: Alert, Oriented x 3, Normal Insight, Normal Concentration Medical Decision Making ED Course and Treatment: 10/27/17 20:18 -motrin/percocet/amoxicillin -Discharge home with amoxicillin, motrin, soft food diet, follow up with your own pmd and dentist within2 days, return to the ER for any new or worsening signs or symptoms. - Medication Orders Current Medication Orders: Amoxicillin (Amoxil 500 Mg Cap) 500 mg PO STAT STA PRN Reason: Protocol Stop: 10/27/17 20:15 Ibuprofen (Motrin Tab) 600 mg PO STAT STA Stop: 10/27/17 20:15 Oxycodone/Acetaminophen (Percocet 5/325 Mg Tab) 1 tab PO STAT STA Stop: 10/27/17 20:15 - PA / BAFFLE MOUNTER / Resident Statement MD/DO has reviewed & agrees with the documentation as recorded. Disposition/Present on Arrival - Present on Arrival Any Indicators Present on Arrival: No History of DVT/PE: No History of Uncontrolled Diabetes: No Urinary Catheter: No History of Decub. Ulcer: No History Surgical Site Infection Following: None - Disposition Have Diagnosis and Disposition been Completed?: Yes Diagnosis: Dental caries, Pain due to dental caries Disposition: HOME/ ROUTINE Disposition Time: 20:19 Patient Plan: Discharge Condition: GOOD Additional Instructions: -Discharge home with amoxicillin, motrin, soft food diet, follow up with your own pmd and dentist within2 days, return to the ER for any new or worsening signs or symptoms. Prescriptions: Amoxicillin 500 mg PO BID #20 tab Ibuprofen [Motrin Tab] 600 mg PO QID PRN #30 tab PRN Reason: Other Referrals: [facility] at [facility] [place] [Outside] - Follow up with primary Forms: WORK NOTE
[2017-10-27 20:37] VITALS: BP 101/82; PULSE 80; RESP 18; O2SAT 100
== END 2017-10-27 20:37 | disposition home or self-care (01) ==
LOC: ED 19:27
DX: K02.9 Dental caries, unspecified (principal); F17.210 Nicotine dependence, cigarettes, uncomplicated

== ENCOUNTER 2017-11-04 15:57 | Emergency (ER) | payer OTHER ==
[2017-11-04 15:57] VITALS: BMI 22.5
[2017-11-04 16:40] VITALS: RESP 18; O2SAT 100
[2017-11-04] MEDS ORDERED: Naproxen 550 mg Tab PO STA (16:40)
--- NOTE | 2017-11-04 16:40 | ED PDOC ---
Arrival/HPI - General Chief Complaint: Dental Pain Time Seen by Provider: 11/04/17 16:33 Historian: Patient - History of Present Illness Narrative History of Present Illness (Text): 11/04/17 16:40 This 22 yo male presents to this ED c/o right lower toothache x 2 days. Patient stated he was in this ED last week, but pain medication is not helping. Patient denies fever, facial swelling, sore throat, dysphagia, dizziness, sob , cp, abdominal pain, or abnormal gait. Patient noted she was seen by his dentist last week, and he has an appointment to see his doctor next week. Time/Duration: Other (see hpi) Quality: Aching Context: Home Past Medical History - Provider Review Nursing Documentation Reviewed: Yes - Past History Past History: No Previous - Infectious Disease Hx of Infectious Diseases: None - Tetanus Immunization Tetanus Immunization: Up to Date - Past Medical History Past Medical History: No Previous - Cardiac Hx Cardiac Disorders: No - Pulmonary Hx Respiratory Disorders: No - Integumentary Hx Dermatological Disorder: No - Psychiatric Hx Depression: No Hx Emotional Abuse: No Hx Physical Abuse: No Hx Substance Use: Yes - Past Surgical History Past Surgical History: No Previous - Anesthesia Hx Anesthesia: No Hx Anesthesia Reactions: No Hx Malignant Hyperthermia: No - Suicidal Assessment Feels Threatened In Home Enviroment: No Family/Social History - Physician Review Nursing Documentation Reviewed: Yes Family/Social History: Other (noncontributory) Smoking Status: Light Smoker < 10 Cigarettes Daily Hx Alcohol Use: No Hx Substance Use: Yes Substance used: marijuana Hx Substance Use Treatment: No Allergies/Home Meds Allergies/Adverse Reactions: Allergies No Known Allergies Allergy (Verified 10/27/17 20:03) Review of Systems - Review of Systems Constitutional: Normal. absent: Fatigue, Weight Change, Fevers Eyes: Normal ENT: Other (dental pain) Respiratory: Normal Cardiovascular: Normal Gastrointestinal: Normal Genitourinary Male: Normal Musculoskeletal: Normal Skin: Normal Neurological: Normal Endocrine: Normal Hemo/Lymphatic: Normal Psychiatric: Normal Physical Exam Vital Signs Temp Pulse Resp BP Pulse Ox 11/04/17 16:17 99.1 F 67 18 95/66 L 100 Temperature: Afebrile Blood Pressure: Normal Pulse: Regular Respiratory Rate: Normal Appearance: Positive for: Well-Appearing, Non-Toxic, Comfortable Pain Distress: None Mental Status: Positive for: Alert and Oriented X 3 - Systems Exam Head: Present: Atraumatic, Normocephalic Pupils: Present: PERRL Extroacular Muscles: Present: EOMI Conjunctiva: Present: Normal Mouth: Present: Moist Mucous Membranes, Normal Lips, Normal Tounge. No: Drooling, Trismus, Normal Teeth ((+) multiple caries visualized. no gum swelling or facial swelling. no dental abscess) Pharnyx: Present: Normal. No: ERYTHEMA, EXUDATE, TONSILS ENLARGED Neck: Present: Normal Range of Motion. No: Meningeal Signs Back: Present: Normal Inspection. No: CVA Tenderness Upper Extremity: Present: Normal Inspection, Normal ROM. No: Cyanosis, Edema Lower Extremity: Present: Normal Inspection, Normal ROM. No: Edema Neurological: Present: GCS=15, CN II-XII Intact, Speech Normal, Motor Func Grossly Intact, Normal Sensory Function, Normal Cerebellar Funct, Gait Normal, Memory Normal Skin: Present: Warm, Dry, Normal Color. No: Rashes Psychiatric: Present: Alert, Oriented x 3, Normal Insight, Normal Concentration Medical Decision Making ED Course and Treatment: 11/04/17 16:47 Re-evaluation. Patient feels better. Discussed results and plan with patient who expresses understanding. All questions answered and there is agreement with the plan to discharge home with instructions. Patient stable for discharge. Return if symptoms persist or worsen. Re-evaluation Time: 16:46 Reassessment Condition: Re-examined, Improved Disposition/Present on Arrival - Present on Arrival Any Indicators Present on Arrival: No History of DVT/PE: No History of Uncontrolled Diabetes: No Urinary Catheter: No History of Decub. Ulcer: No History Surgical Site Infection Following: None - Disposition Have Diagnosis and Disposition been Completed?: Yes Diagnosis: Pain due to dental caries Disposition: HOME/ ROUTINE Disposition Time: 16:47 Patient Plan: Discharge Patient Problems: Current Active Problems Problem Status Onset Pain due to dental caries Acute Condition: IMPROVED Discharge Instructions (ExitCare): Tooth Decay, Adult (DC) Additional Instructions: Call private dentist for follow up visit in 1-2 days. Take medication as instructed. Return to emergency if symptoms worsen. Stop taking Amoxicillin, and Motrin . And start new medication Prescriptions: Chlorhexidine 0.12% [Peridex] 15 ml PO BID #1 bottle Clindamycin [Cleocin] 300 mg PO TID #21 cap Naproxen 500 mg PO BID PRN #14 tab PRN Reason: Pain, Severe (8-10) Referrals: FAMILY PROVIDER,NO [Primary Care Provider] - Follow up with primary Bailee Soria MD [Staff Provider] - Follow up with primary [facility] [Outside] - Follow up with primary Forms: [employer] (Nigerian)
[2017-11-04 17:34] VITALS: BP 103/60; PULSE 65; TEMP 99
== END 2017-11-04 17:20 | disposition home or self-care (01) ==
LOC: ED 15:57
DX: K02.9 Dental caries, unspecified (principal)

== ENCOUNTER 2018-03-03 13:44 | Emergency (ER) | payer BC ==
[2018-03-03 13:55] VITALS: BP 137/73; PULSE 91; RESP 18; O2SAT 100; BMI 21.6
--- NOTE | 2018-03-03 14:44 | ED PDOC ---
Arrival/HPI - General Chief Complaint: Back Pain Time Seen by Provider: 03/03/18 13:45 Historian: Patient - History of Present Illness Narrative History of Present Illness (Text): 03/03/18 14:12 22 year old male, with no significant past medical history, presents to the Emergency department complaining of right lower back discomfort since last night. Patient informs localized discomfort to right lower back, unchanged since onset. Patient denies any recent trauma or injury to the site but reports heavy lifting at work. Patient states exacerbation of symptoms with movement but denies any pain while at rest. Patient denies any other associated somatic complaints. Patient denies any fevers, chills, headache, dizziness, chest pain, shortness of breath, dyspnea on exertion, cough, abdominal pain, nausea, vomiting, diarrhea, neck pain, bladder or bowel incontinence, numbness to extremities, testicular pain, or any other complaints. Patient denies taking any pain medication for the presented symptoms. Time/Duration: Other (last night) Symptom Onset: Gradual Symptom Course: Unchanged Quality: Tightness Severity Level: 5 (only with movement) Past Medical History - Provider Review Nursing Documentation Reviewed: Yes - Travel History Have you recently traveled outside [place] w/in the past 3 mons?: No - Past History Past History: No Previous - Infectious Disease Hx of Infectious Diseases: None - Tetanus Immunization Tetanus Immunization: Up to Date - Past Medical History Past Medical History: No Previous - Cardiac Hx Cardiac Disorders: No - Pulmonary Hx Respiratory Disorders: No - Integumentary Hx Dermatological Disorder: No - Psychiatric Hx Depression: No Hx Emotional Abuse: No Hx Physical Abuse: No Hx Substance Use: Yes - Past Surgical History Past Surgical History: No Previous - Anesthesia Hx Anesthesia: No Hx Anesthesia Reactions: No Hx Malignant Hyperthermia: No - Suicidal Assessment Feels Threatened In Home Enviroment: No Family/Social History - Physician Review Nursing Documentation Reviewed: Yes Family/Social History: Unknown Family HX Smoking Status: Light Smoker < 10 Cigarettes Daily Hx Alcohol Use: Yes Frequency of alcohol use: Socially Hx Substance Use: Yes Substance used: marijuana Hx Substance Use Treatment: No Allergies/Home Meds Allergies/Adverse Reactions: Allergies No Known Allergies Allergy (Verified 10/27/17 20:03) Review of Systems - Review of Systems Constitutional: absent: Fatigue, Fevers Respiratory: absent: SOB, Cough Cardiovascular: absent: Chest Pain, Palpitations Gastrointestinal: absent: Abdominal Pain, Nausea, Vomiting Genitourinary Male: absent: Dysuria, Frequency, Hematuria Musculoskeletal: Back Pain. absent: Arthralgias, Neck Pain Skin: absent: Rash, Pruritis Neurological: absent: Dizziness Psychiatric: absent: Anxiety, Depression Physical Exam Vital Signs Reviewed: Yes Vital Signs Temp Pulse Resp BP Pulse Ox 03/03/18 13:50 98.3 F 91 H 18 137/73 100 Temperature: Afebrile Blood Pressure: Normal Pulse: Regular Respiratory Rate: Normal Appearance: Positive for: Well-Appearing, Non-Toxic, Comfortable Pain Distress: None Mental Status: Positive for: Alert and Oriented X 3 - Systems Exam Head: Present: Atraumatic Mouth: Present: Moist Mucous Membranes Neck: Present: Normal Range of Motion Respiratory/Chest: Present: Clear to Auscultation, Good Air Exchange. No: Respiratory Distress, Accessory Muscle Use Cardiovascular: Present: Regular Rate and Rhythm, Normal S1, S2. No: Murmurs Abdomen: No: Tenderness, Distention, Peritoneal Signs, Rebound, Guarding Back: Present: Normal Inspection, Paraspinal Tenderness (+ right low lumbar paraspinal tenderness). No: Midline Tenderness Upper Extremity: Present: Normal Inspection, Normal ROM Lower Extremity: Present: Normal Inspection, Normal ROM Neurological: Present: GCS=15, Speech Normal Skin: Present: Warm, Dry, Normal Color. No: Rashes Psychiatric: Present: Alert, Oriented x 3 Medical Decision Making ED Course and Treatment: 03/03/18 14:56 Patient nontoxic well-appearing in no distress with stable vital signs. pt with right low back pain since last night. pain only with movement. Toradol, Flexeril Patient reassessment: Feeling better with medications ambulating with a steady gait. Muscle strength 5 out of 5 bilaterally. I advised to followup with the orthopedist within the next 2 days. Return if symptoms worsen persist or new symptoms develop Patient verbalizes understanding of discharge instructions and need for immediate followup. all aspects of this case were discussed the attending of record. Impression: Back pain Motrin every 6 hours as needed for pain Flexeril one tablet every 8 hours as needed for muscle spasms: May cause drowsiness Followup with the orthopedist within the next 2 days Followup with primary care physician within the next 2 days Return if symptoms worsen persist or if new symptoms develop - Medication Orders Current Medication Orders: Discontinued Medications Cyclobenzaprine HCl (Flexeril) 10 mg PO STAT STA Stop: 03/03/18 14:13 Last Admin: 03/03/18 14:26 Dose: 10 mg Ketorolac Tromethamine (Toradol) 60 mg IM STAT STA Stop: 03/03/18 14:13 Last Admin: 03/03/18 14:26 Dose: 60 mg MAR Pain Assessment Document 03/03/18 14:26 EB (Rec[facility]03[facility]18 14:26 [facility] Pain Reassessment Is this a pain reassessment? No Sleep Is patient sleeping during reassessment? No Presence of Pain Presence of Pain Yes Pain Scale Used Protocol: PSCALES Pain Scale Used Numeric Description Intensity of Pain at present 6 IM Administration Charges Document 03/03/18 14:26 (Rec: 03/03/18 14:26 [facility] Injection Site MAR Injection Site Right Deltoid Charges for Administration # of IM Administrations 1 Disposition/Present on Arrival - Present on Arrival Any Indicators Present on Arrival: No History of DVT/PE: No History of Uncontrolled Diabetes: No Urinary Catheter: No History of Decub. Ulcer: No History Surgical Site Infection Following: None - Disposition Have Diagnosis and Disposition been Completed?: Yes Diagnosis: Back pain Disposition: HOME/ ROUTINE Disposition Time: 14:44 Patient Plan: Discharge Condition: GOOD Discharge Instructions (ExitCare): Low Back Pain (DC) Additional Instructions: Motrin every 6 hours as needed for pain Flexeril one tablet every 8 hours as needed for muscle spasms: May cause drowsiness Followup with the orthopedist within the next 2 days Followup with primary care physician within the next 2 days Return if symptoms worsen persist or if new symptoms develop Prescriptions: Cyclobenzaprine [Cyclobenzaprine HCl] 10 mg PO Q8 #10 tab Ibuprofen [Motrin] 600 mg PO Q6H PRN #20 tab PRN Reason: pain/fever reduction Referrals: Kayode Colorado MD [Staff Provider] - Follow up with primary Bailee Soria MD [Medical Doctor] - Follow up with primary [employer] [Outside] - Follow up with primary Forms: [employer] (Scottish), WORK NOTE
[2018-03-03 15:28] VITALS: TEMP 97.9
== END 2018-03-03 15:15 | disposition home or self-care (01) ==
LOC: ED 13:44
DX: M54.5 Low back pain (principal)
CPT/HCPCS: 96372; 99283; J1885

== ENCOUNTER 2018-03-12 11:30 | Emergency (ER) | payer BC ==
[2018-03-12 11:31] VITALS: BMI 22.5
[2018-03-12 11:44] VITALS: RESP 18; TEMP 98.8
[2018-03-12] MEDS ORDERED: cefTRIAXone (Rocephin) 250 mg Inj IM STA (11:57)
[2018-03-12 12:05] VITALS: O2SAT 98
[2018-03-12 12:17] LABS: PH,URINE 8.5 (4.7-8.0); URINE BILIRUBIN NEGATIVE (NEGATIVE); URINE BLOOD NEGATIVE (NEGATIVE); URINE GLUCOSE (UA) NEGATIVE (NEGATIVE); URINE LEUKOCYTE ESTERASE SMALL Leu/uL (NEGATIVE); URINE PROTEIN TRACE mg/dL (<30 mg/dL); URINE UROBILINOGEN 0.2 E.U./dL (<1 E.U./dL)
[2018-03-12 12:19] LABS: URINE APPEARANCE CLEAR (CLEAR); URINE COLOR YELLOW (YELLOW)
[2018-03-12 12:32] LABS: URINE BACTERIA MOD (NEG); URINE EPITHELIAL CELLS 0 - 2 /hpf (0-5); URINE RBC 0 - 2 /hpf (0-2)
[2018-03-12 12:37] VITALS: BP 118/69; PULSE 86
--- NOTE | 2018-03-12 12:52 | ED PDOC ---
Arrival/HPI - General Chief Complaint: Male Genitourinary Time Seen by Provider: 03/12/18 11:55 - History of Present Illness Narrative History of Present Illness (Text): 22 y/o male presents to the ED for STI testing and treatment. Patient states his partner tested positive a few days ago and he is here to receive his treatment. Pt has noticed a small amount of white penile discharge associated with mild dysuria over the last few days. Denies fever, chills, abdominal pain, testicular pain or swelling, penile lesions, or any other associated symptoms. Past Medical History - Provider Review Nursing Documentation Reviewed: Yes - Past History Past History: No Previous - Infectious Disease Hx of Infectious Diseases: None - Tetanus Immunization Tetanus Immunization: Up to Date - Past Medical History Past Medical History: No Previous - Cardiac Hx Cardiac Disorders: No - Pulmonary Hx Respiratory Disorders: No - Integumentary Hx Dermatological Disorder: No - Psychiatric Hx Depression: No Hx Emotional Abuse: No Hx Physical Abuse: No Hx Substance Use: Yes - Past Surgical History Past Surgical History: No Previous - Anesthesia Hx Anesthesia: No Hx Anesthesia Reactions: No Hx Malignant Hyperthermia: No - Suicidal Assessment Feels Threatened In Home Enviroment: No Family/Social History - Physician Review Nursing Documentation Reviewed: Yes Family/Social History: No Known Family HX Smoking Status: Light Smoker < 10 Cigarettes Daily Hx Alcohol Use: No Hx Substance Use: Yes Substance used: marijuana Hx Substance Use Treatment: No Allergies/Home Meds Allergies/Adverse Reactions: Allergies No Known Allergies Allergy (Verified 10/27/17 20:03) Home Medications: Home Meds Medication Instructions Recorded Confirmed No Known Home Med 03/12/18 03/12/18 Review of Systems - Review of Systems Constitutional: Normal. absent: Fevers Eyes: Normal. absent: Vision Changes ENT: Normal. absent: Sinus Congestion Respiratory: Normal. absent: SOB, Cough Cardiovascular: Normal. absent: Chest Pain, Palpitations Gastrointestinal: Normal. absent: Abdominal Pain, Nausea, Vomiting Genitourinary Male: Dysuria. absent: Hematuria, Urinary Output Changes, Other (testicular swelling or pain) Musculoskeletal: Normal. absent: Arthralgias, Back Pain, Neck Pain Skin: Normal. absent: Rash, Cellulitis Neurological: Normal. absent: Headache, Dizziness Endocrine: Normal Hemo/Lymphatic: Normal Psychiatric: Normal Physical Exam Vital Signs Reviewed: Yes Vital Signs Temp Pulse Resp BP Pulse Ox 03/12/18 12:36 86 18 118/69 98 03/12/18 11:51 98.8 F 90 18 121/76 98 03/12/18 11:40 98.8 F 90 18 121/76 99 Temperature: Afebrile Blood Pressure: Normal Pulse: Regular Respiratory Rate: Normal Appearance: Positive for: Well-Appearing, Non-Toxic, Comfortable Pain Distress: None Mental Status: Positive for: Alert and Oriented X 3 - Systems Exam Head: Present: Atraumatic, Normocephalic Pupils: Present: PERRL Extroacular Muscles: Present: EOMI Conjunctiva: Present: Normal Ears: Present: Normal Mouth: Present: Moist Mucous Membranes Pharnyx: Present: Normal. No: ERYTHEMA, EXUDATE, TONSILS ENLARGED Nose (External): Present: Atraumatic Nose (Internal): Present: Moist, Clear Mucous Neck: Present: Normal Range of Motion. No: MIDLINE TENDERNESS, Paraspinal Tenderness Respiratory/Chest: Present: Clear to Auscultation, Good Air Exchange. No: Respiratory Distress, Accessory Muscle Use Cardiovascular: Present: Regular Rate and Rhythm, Normal S1, S2, Peripheal Pulses Present. No: Murmurs Abdomen: Present: Normal Bowel Sounds. No: Tenderness, Distention, Peritoneal Signs, Rebound, Guarding Genitourinary Male: Present: Normal External Genitalia, Circumcised Penis, Penile Discharge (small amount white discharge). No: Lesions, Testicle Tenderness, Penile Swelling, Masses, Erythema, Testicle Swelling Back: Present: Normal Inspection. No: CVA Tenderness, Paraspinal Tenderness Upper Extremity: Present: Normal Inspection, Normal ROM, NORMAL PULSES, Neurovascularly Intact, Capillary Refill < 2s. No: Cyanosis, Edema Lower Extremity: Present: Normal Inspection, NORMAL PULSES, Normal ROM, Neurovascularly Intact, Capillary Refill < 2 s. No: Edema Neurological: Present: GCS=15, CN II-XII Intact, Speech Normal, Motor Func Grossly Intact, Normal Sensory Function, Gait Normal, Memory Normal Skin: Present: Warm, Dry, Normal Color. No: Rashes Lymphatic: No: Cervical Adenopathy Psychiatric: Present: Alert, Oriented x 3, Normal Insight, Normal Concentration, Normal Affect, Normal Mood Medical Decision Making ED Course and Treatment: 03/12/18 11:30 Initial Plan: * Chlamydia/GC * UA, culture * Rocephin, Azithromycin UA: leuk esterase Plan of care discussed with patient, and strict instructions given regarding prescriptions, importance of follow up, and signs to return to Emergency Department, to include testicular pain, fevers, chills, abdominal pain, or any other new/worsening symptoms. Patient verbalizes understanding of discussion. Patient A&Ox3, ambulating with steady gait, stable for discharge home. Impression: Urethritis - Lab Interpretations Lab Results: Lab Results 03/12/18 12:00: Urine Color Yellow, Urine Appearance Clear, Urine pH 8.5, Ur Specific [place] 1.015, Urine Protein Trace H, Urine Glucose (UA) Negative, Urine Ketones Negative, Urine Blood Negative, Urine Nitrate Negative, Urine Bilirubin Negative, Urine Urobilinogen 0.2, Ur Leukocyte Esterase Small H, Urine RBC 0 - 2, Urine WBC 10 - 15, Ur Epithelial Cells 0 - 2, Urine Bacteria Mod - Medication Orders Current Medication Orders: Discontinued Medications Azithromycin (Zithromax) 1,000 mg PO STAT STA; Protocol Stop: 03/12/18 11:59 Last Admin: 03/12/18 12:38 Dose: 1,000 mg Ceftriaxone Sodium (Rocephin) 250 mg IM STAT STA; Protocol Stop: 03/12/18 11:58 Last Admin: 03/12/18 12:38 Dose: 250 mg IM Administration Charges Document 03/12/18 12:38 EQ (Rec: 03/12/18 12:39 EQ [facility] [place]) Injection Site MAR Injection Site Right Gluteus Subhash Charges for Administration # of IM Administrations 1 Disposition/Present on Arrival - Present on Arrival Any Indicators Present on Arrival: No History of DVT/PE: No History of Uncontrolled Diabetes: No Urinary Catheter: No History of Decub. Ulcer: No History Surgical Site Infection Following: None - Disposition Have Diagnosis and Disposition been Completed?: Yes Diagnosis: Chlamydia contact, Encounter for screening for infections with predominantly sexual mode of transmission Disposition: HOME/ ROUTINE Disposition Time: 12:00 Patient Plan: Discharge Condition: GOOD Discharge Instructions (ExitCare): Screening for Sexually Transmitted Infections Additional Instructions: Followup with primary doctor within 2 days Return to ER for new/worsening symptoms. Referrals: [facility] [Outside] - Follow up with primary Bailee Soria MD [Medical Doctor] - Follow up with primary Forms: [employer] (Icelandic), WORK NOTE
== END 2018-03-12 13:00 | disposition home or self-care (01) ==
LOC: ED 11:30
DX: A74.9 Chlamydial infection, unspecified (principal); Z20.2 Contact with and (suspected) exposure to infections with a predominantly sexual mode of transmission
CPT/HCPCS: 81001; 87086; 87491; 87591; 96372; 99283; J0696

== ENCOUNTER 2018-03-16 18:20 | Emergency (ER) | payer BC ==
[2018-03-16 18:45] VITALS: BMI 22.1
[2018-03-16 18:46] VITALS: PULSE 90; TEMP 99.6
[2018-03-16 19:29] VITALS: BP 121/75; RESP 18; O2SAT 100
--- NOTE | 2018-03-17 00:51 | ED PDOC ---
Arrival/HPI - General Chief Complaint: Back Pain Historian: Patient - History of Present Illness Narrative History of Present Illness (Text): 03/17/18 24:40 22 year old male, with no significant past medical history, who presents to the Emergency department requesting a note for work. Patient was here recently in Emergency department on 03/03/18 for back pain. Patient taking medication that was prescribed and states he is feeling better. 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 Patient has no further complaints. Time/Duration: Other (Patient notes back pain since this morning, presents requesting note for work ) Symptom Onset: Gradual Symptom Course: Unchanged Activities at Onset: Light Past Medical History - Provider Review Nursing Documentation Reviewed: Yes - Past History Past History: No Previous - Infectious Disease Hx of Infectious Diseases: None - Tetanus Immunization Tetanus Immunization: Up to Date - Past Medical History Past Medical History: No Previous - Cardiac Hx Cardiac Disorders: No - Pulmonary Hx Respiratory Disorders: No - Neurological Hx Neurological Disorder: No - HEENT Hx HEENT Disorder: No - Renal Hx Renal Disorder: No - Endocrine/Metabolic Hx Endocrine Disorders: No - Hematological/Oncological Hx Blood Disorders: No - Integumentary Hx Dermatological Disorder: No - Musculoskeletal/Rheumatological Hx Musculoskeletal Disorders: No - Gastrointestinal Hx Gastrointestinal Disorders: No - Genitourinary/Gynecological Hx Genitourinary Disorders: No - Psychiatric Hx Psychophysiologic Disorder: No Hx Substance Use: Yes - Past Surgical History Past Surgical History: No Previous - Anesthesia Hx Anesthesia: No Hx Anesthesia Reactions: No Hx Malignant Hyperthermia: No - Suicidal Assessment Feels Threatened In Home Enviroment: No Family/Social History - Physician Review Nursing Documentation Reviewed: Yes Family/Social History: No Known Family HX Smoking Status: Light Smoker < 10 Cigarettes Daily Hx Alcohol Use: No Hx Substance Use: Yes Substance used: marijuana Hx Substance Use Treatment: No Allergies/Home Meds Allergies/Adverse Reactions: Allergies No Known Allergies Allergy (Verified 03/16/18 18:46) Home Medications: Home Meds Medication Instructions Recorded Confirmed No Known Home Med 03/12/18 03/16/18 Review of Systems - Physician Review All systems were reviewed & negative as marked: Yes (Patient presents requesting note for work.) Physical Exam Vital Signs Reviewed: Yes Vital Signs Temp Pulse Resp BP Pulse Ox 03/16/18 19:28 90 18 121/75 100 11/25/18 18:45 99.6 F 90 19 119/72 97 Temperature: Afebrile Blood Pressure: Normal Pulse: Regular Respiratory Rate: Normal Appearance: Positive for: Well-Appearing, Non-Toxic, Comfortable Pain Distress: None Mental Status: Positive for: Alert and Oriented X 3 - Systems Exam Head: Present: Atraumatic, Normocephalic Pupils: Present: PERRL Extroacular Muscles: Present: EOMI Conjunctiva: Present: Normal Mouth: Present: Moist Mucous Membranes Neck: Present: Normal Range of Motion Respiratory/Chest: Present: Clear to Auscultation, Good Air Exchange. No: Respiratory Distress, Accessory Muscle Use Cardiovascular: Present: Regular Rate and Rhythm, Normal S1, S2. No: Murmurs Abdomen: No: Tenderness, Distention, Peritoneal Signs Back: Present: Normal Inspection Upper Extremity: Present: Normal Inspection. No: Cyanosis, Edema Lower Extremity: Present: Normal Inspection. No: Edema Neurological: Present: GCS=15, CN II-XII Intact, Speech Normal Skin: Present: Warm, Dry, Normal Color. No: Rashes Psychiatric: Present: Alert, Oriented x 3, Normal Insight, Normal Concentration Medical Decision Making ED Course and Treatment: 03/17/18 24:40 Impression: 22 year old male presents to the Emergency department requesting a note for work. Prior Visits: Notes and results from previous visits were reviewed. Patient was last seen in the emergency department on 03/03/18 for right lower back discomfort since the night prior to arrival. Patient was discharged home in good condition, given Motrin for pain, Flexeril for muscle spasms, and directed to follow up with Orthopedist within next 2 days, and primary care physician within next 2 days. - Scribe Statement The provider has reviewed the documentation as recorded by the Scribe Renuka Tao All medical record entries made by the Scribe were at my direction and personally dictated by me. I have reviewed the chart and agree that the record accurately reflects my personal performance of the history, physical exam, medical decision making, and the department course for this patient. I have also personally directed, reviewed, and agree with the discharge instructions and disposition. Disposition/Present on Arrival - Present on Arrival Any Indicators Present on Arrival: No History of DVT/PE: No History of Uncontrolled Diabetes: No Urinary Catheter: No History of Decub. Ulcer: No History Surgical Site Infection Following: None - Disposition Have Diagnosis and Disposition been Completed?: Yes Diagnosis: Low back pain Disposition: HOME/ ROUTINE Disposition Time: 19:25 Condition: GOOD Discharge Instructions (ExitCare): Low Back Pain (DC) Additional Instructions: DENAE MARADIAGA, thank you for letting us take care of you today. The emergency medical care you received today was directed at your acute symptoms. If you were prescribed any medication, please fill it and take as directed. It may take several days for your symptoms to resolve. Return to the Emergency Department if your symptoms worsen, do not improve, or if you have any other problems. Please contact your doctor or call one of the physicians/clinics you have been referred to that are listed on the Patient Visit Information form that is included in your discharge packet. Bring any paperwork you were given at discharge with you along with any medications you are taking to your follow up visit. Our treatment cannot replace ongoing medical care by a primary care provider outside of the emergency department. Thank you for allowing the [facility] team to be part of your care today. Continue taking your medication as already prescribed and follow up with your doctor this week. Referrals: [facility], [Non-Staff] - Follow up with primary Forms: [employer] (Nepali), WORK NOTE
== END 2018-03-16 19:28 | disposition home or self-care (01) ==
LOC: ED 18:20
DX: M54.5 Low back pain (principal)